=== PATIENT | male | born 1990 | race Caucasian/White ===

== ENCOUNTER 2017-08-28 21:34 | Emergency (ER) | payer MEDICAID ==
[~2017-08-28] VITALS: Ht 182.9 cm; Wt 95.7 kg
[2017-08-28 21:37] VITALS: Ht 182.9 cm; Wt 95.7 kg
[2017-08-28 22:13] VITALS: BP 129/70
== END 2017-08-28 22:13 | disposition home or self-care (01) ==
LOC: ED 21:34
DX: B35.3 Tinea pedis (principal); K21.9 Gastro-esophageal reflux disease without esophagitis; G89.29 Other chronic pain; M54.9 Dorsalgia, unspecified; Z76.0 Encounter for issue of repeat prescription

== ENCOUNTER 2017-08-29 04:03 | Emergency (ER) | payer MEDICAID ==
[~2017-08-29] VITALS: Ht 182.9 cm; Wt 95.7 kg
[2017-08-29 04:10] VITALS: Ht 182.9 cm; Wt 95.7 kg
[2017-08-29 04:30] VITALS: BP 138/73
== END 2017-08-29 04:30 | disposition home or self-care (01) ==
LOC: ED 04:03
DX: R10.13 Epigastric pain (principal); F22 Delusional disorders

== ENCOUNTER 2017-09-07 03:32 | Emergency (ER) | payer MEDICAID ==
[~2017-09-07] VITALS: Ht 182.9 cm; Wt 90.7 kg
[2017-09-07 03:37] VITALS: Ht 182.9 cm; Wt 90.7 kg
[2017-09-07 05:10] VITALS: BP 147/92
== END 2017-09-07 05:10 | disposition home or self-care (01) ==
LOC: ED 03:32
DX: F41.9 Anxiety disorder, unspecified (principal); G47.00 Insomnia, unspecified; Z86.59 Personal history of other mental and behavioral disorders

== ENCOUNTER 2017-09-08 23:54 | Emergency (ER) | payer MEDICAID ==
[~2017-09-08] VITALS: Ht 182.9 cm; Wt 92.8 kg
[2017-09-08 23:58] VITALS: Ht 182.9 cm; Wt 92.8 kg
[2017-09-09 01:43] LABS: BASOPHIL % 0.5 % (0-2); PLATELET COUNT 258 x10^3mcL (130-400); RED CELL DISTRIBUTION WIDTH 13.4 % (11.5-14.5)
[2017-09-09 01:47] LABS: CALCIUM 8.7 mg/dL (8.5-10.1); CARBON DIOXIDE 29.4 mmol/L (21-32); CHLORIDE SERUM 100 mmol/L (98-107); CREATININE SERUM 0.9 mg/dL (0.7-1.3); GFR1 > 60 mL/min; GLUCOSE SERUM 83 mg/dL (74-106); POTASSIUM SERUM 3.6 mmol/L (3.5-5.1); SODIUM SERUM 136 mmol/L (136-145)
[2017-09-09 02:00] LABS: ALBUMIN 3.8 g/dL (3.4-5.0); ALKALINE PHOSPHATASE 82 U/L (46-116); ALT/SGPT 32 U/L (16-63); AST/SGOT 23 U/L (15-37); BILIRUBIN TOTAL 0.33 mg/dL (0.20-1.00); FREE T4 0.88 ng/dL (0.76-1.46); TOTAL PROTEIN, SERUM 7.3 g/dL (6.4-8.2)
[2017-09-09 02:47] LABS: microscopic required? NO
[2017-09-09 03:11] LABS: urine erythrocyte NEGATIVE (NEGATIVE)
[2017-09-09 03:23] LABS: AMPHETAMINE QUAL UR NONE DETECTED (NEG <=1000)
[2017-09-09 12:17] VITALS: BP 134/86
== END 2017-09-09 12:05 | disposition left against medical advice (07) ==
LOC: ED 23:54 → DU 09-09 10:15
PROVIDERS: Emergency Medicine
DX: F22 Delusional disorders (principal); R51 Headache
CPT/HCPCS: 84439; J1100; J1885; J2765; J3486